=== PATIENT | male | born 1985 | race Hispanic/Latino ===

== ENCOUNTER 2017-06-30 22:42 | Emergency (ER) | payer MEDICAID, OTHER ==
[2017-06-30 22:46] VITALS: BMI 20.7
[2017-06-30] MEDS ORDERED: Sodium Chloride 0.9% 1,000 ML IV STA (23:20)
--- NOTE | 2017-06-30 23:22 | ED PDOC ---
Arrival/HPI - General Historian: Patient, EMS, Police EM Caveat: Intoxicated, Uncooperative <Lucien Zepeda - Last Filed: 07/01/17 06:13> <Aroldo Paige DO - Last Filed: 07/01/17 06:32> - General Chief Complaint: Substance Abuse Time Seen by Provider: 06/30/17 22:44 - History of Present Illness Narrative History of Present Illness (Text): 06/30/17 23:18 32M w/ pmhx significant for HepC, IVDA [place] [facility] [place] EMS and Police physically and verbally aggressive saying he did cocaine, heroine, PCP. Total amount unknown. Patient is uncooperative at this time. Patient had to be restrained for safety for himself and others. Unable to obtain a full HPI due to being non-compliant continued screaming obscenities. PMH: septic joint, HepC, IVDA PSH: joint aspiration ALL: NKDA SocialHx: IVDA (Lucien Zepeda) Past Medical History - Provider Review Nursing Documentation Reviewed: Yes - Travel History Have you recently traveled outside [place] w/in the past 3 mons?: No - Past History Past History: Non-Contributing - Infectious Disease Hx of Infectious Diseases: None - Tetanus Immunization Tetanus Immunization: Unknown - Past Medical History Past Medical History: No Previous - Pulmonary Other/Comment: Smoker - Hematological/Oncological Hx Blood Transfusions: No - Integumentary Other/Comment: multiple tatoos, track maurice both arms,dirty feet and toenails - Musculoskeletal/Rheumatological Hx Falls: No - Psychiatric Hx Substance Use: Yes (herion/cocaine on Monday) Other/Comment: IVDA- used heroin 01/03/16 - Past Surgical History Past Surgical History: No Previous - Surgical History Other/Comment: ct guided right groin aspiration and drainage of abcess 01/05/2016 - Anesthesia Hx Anesthesia: No <Lucien Zepeda - Last Filed: 07/01/17 06:13> Family/Social History Family/Social History: Other (non-contributory) Smoking Status: Heavy Smoker > 10 Cigarettes Daily Hx Alcohol Use: Yes (quit 3 1/2 yrs ago) Hx Substance Use: Yes (herion/cocaine on Monday) <Lucien Zepeda - Last Filed: 07/01/17 06:13> Allergies/Home Meds <Pradeep Zepedan - Last Filed: 07/01/17 06:13> <Aroldo Paige DO - Last Filed: 07/01/17 06:32> Allergies/Adverse Reactions: Allergies No Known Allergies Allergy (Verified 02/23/16 02:13) Home Medications: Home Meds Medication Instructions Recorded Confirmed No Known Home Med 02/23/16 07/01/17 Review of Systems - Review of Systems Systems not reviewed;Unavailable: Uncooperative <Lucien - Last Filed: 07/01/17 06:13> - Physician Review All systems were reviewed & negative as marked: Yes <Karineyazan Aroldo CHEN - Last Filed: 07/01/17 06:32> Physical Exam Vital Signs Reviewed: Yes Temperature: Afebrile Blood Pressure: Normal Pulse: Tachycardic Respiratory Rate: Normal Appearance: Positive for: Well-Appearing, Ill-Appearing, Unkept, Uncomfortable Pain Distress: None Mental Status: Positive for: Agitated - Systems Exam Head: Present: Atraumatic Pupils: Present: Other (Constricted) Conjunctiva: Present: Normal Mouth: Present: Drooling Pharnyx: No: ERYTHEMA, EXUDATE Neck: Present: Other (Midline abrasians) Respiratory/Chest: No: Respiratory Distress, Accessory Muscle Use Cardiovascular: Present: Normal S1, S2, Tachycardic Abdomen: No: Tenderness, Distention, Peritoneal Signs Back: Present: Normal Inspection. No: CVA Tenderness, Midline Tenderness Upper Extremity: Present: Other (multiple scars from IVD injection sites). No: Edema Neurological: No: GCS=15 Skin: Present: Rashes, Abrasion Psychiatric: Present: Alert <Pradeep Zepedan - Last Filed: 07/01/17 06:13> Vital Signs Pulse Resp BP Pulse Ox 07/01/17 06:15 71 19 117/67 98 07/01/17 01:23 87 18 137/85 100 06/30/17 23:12 130 H 20 108/53 L 97 06/30/17 23:07 225 H 24 119/68 97 Medical Decision Making - Lab Interpretations Interpretation: No clinic. 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 Patient was seen and evaluated with resident. Came up with plan and treatment together. 32 year old male presents by EMS and Police verbally aggressive saying he did cocaine, heroine, and PCP. Plan: -- EKG -- Labs -- Chest X-ray -- Adenosine Inj x2, Ativan, Haldol, IV Fluids -- Urinary Staight Cath -- Restraint/ Seclusion For Violent Behavior -- O2 Via Nasal Cannula -- Urinalysis w/ micro -- (Aroldo Paige DO) - Lab Interpretations Narrative Lab Interpretation (Text): 07/01/17 06:15 UDS + for PCP, opiates, cocaine WBC elevated 2/2 reactive process (Lucien Zepeda) Lab Results: 06/30/17 23:05 06/30/17 23:05 Lab Results 06/30/17 23:40: Urine Opiates Screen Positive H, Urine Methadone Screen Negative , Ur Barbiturates Screen Negative, Ur Phencyclidine Scrn Positive H, Ur Amphetamines Screen Negative, U Benzodiazepines Scrn Negative, U Oth Cocaine Metabols Positive H, U Cannabinoids Screen Positive H 06/30/17 23:40: Urine Color Yellow, Urine Appearance Sl cloudy, Urine pH 6.0, Ur Specific [place] >= 1.030, Urine Protein 100 H, Urine Glucose (UA) Negative, Urine Ketones Trace H, Urine Blood Negative, Urine Nitrate Negative, Urine Bilirubin Small H, Urine Urobilinogen 1.0 H, Ur Leukocyte Esterase Negative, Urine RBC 0 - 2, Urine WBC 0 - 2, Ur Epithelial Cells 0 - 2, Amorphous Sediment Few, Urine Bacteria Few 06/30/17 23:05: Alcohol, Quantitative < 10 06/30/17 23:05: Sodium 145, Potassium 4.1, Chloride 100, Carbon Dioxide 19 L, Anion Gap 30 H, BUN 8, Creatinine 1.0, Est GFR ( Amer) > 60, Est GFR (Non -Af Amer) > 60, Random Glucose 229 H, Calcium 10.8 H, Magnesium 2.1, Total Bilirubin 1.0, AST 58, ALT 42, Alkaline Phosphatase 90, Lactate Dehydrogenase 486, Total Creatine Kinase 71, Troponin I < 0.01, Total Protein 9.0 H, Albumin 4.1, Globulin 4.9, Albumin/Globulin Ratio 0.8 L 06/30/17 23:05: WBC 19.8 H D, RBC 4.82, Hgb 13.7 L, Hct 42.8, MCV 88.8, MCH 28.4 , MCHC 32.0, RDW 14.7 H, Plt Count 377, MPV 10.4, Gran % 73.4 H, Lymph % (Auto) 20.2 L, [place] % (Auto) 5.1, Eos % (Auto) 0.9 L, Baso % (Auto) 0.4, Gran # 14.55 H , Lymph # (Auto) 4.0 H, [place] # (Auto) 1.0 H, Eos # (Auto) 0.2, Baso # (Auto) 0.07 - RAD Interpretation Narrative RAD Interpretations (Text): 07/01/17 06:16 CXR No acute changes in lungs- WNL (Lucien Zepeda) Radiology Orders: 06/30/17 23:19 CHEST PORTABLE [RAD] Stat - EKG Interpretation EKG Interpretation (Text): 06/30/17 23:29 Tachy cardia questionable A-flutter (Lucien Zepeda) - Medication Orders Current Medication Orders: Discontinued Medications Adenosine (Adenosine 6 Mg/2 Ml Inj) 12 mg IVP STAT STA Stop: 07/01/17 00:17 Last Admin: 06/30/17 23:09 Dose: 12 mg IVP Administration Document 06/30/17 23:09 RD (Rec: 07/01/17 00:21 RD [id number]) Charges for Administration # of IVP Administrations 1 Adenosine (Adenosine 6 Mg/2 Ml Inj) 6 mg IVP STAT STA Stop: 07/01/17 00:18 Last Admin: 06/30/17 23:08 Dose: 6 mg IVP Administration Document 06/30/17 23:08 RD (Rec: 07/01/17 00:20 RD [id number]) Charges for Administration # of IVP Administrations 1 Haloperidol Lactate (Haldol) 5 mg IM STAT STA PRN Reason: Protocol Stop: 06/30/17 23:31 Last Admin: 06/30/17 22:50 Dose: 5 mg IM Administration Charges Document 06/30/17 22:50 RD (Rec: 07/01/17 00:14 RD [id number]) Injection Site MAR Injection Site Left Deltoid Charges for Administration # of IM Administrations 1 Sodium Chloride (Sodium Chloride 0.9%) 1,000 mls @ 999 mls/hr IV .Q1H1M STA Stop: 07/01/17 00:20 Last Admin: 06/30/17 23:05 Dose: 999 mls/hr eMAR Start Stop Document 06/30/17 23:05 RD (Rec: 07/01/17 00:13 RD [id number]) Intravenous Solution Start Date 06/30/17 Start Time 23:05 End Date 07/01/17 End time 00:05 Total Infusion Time 60 Sodium Chloride (Sodium Chloride 0.9%) 1,000 mls @ 999 mls/hr IV .Q1H1M STA Stop: 07/01/17 01:16 Last Admin: 07/01/17 00:10 Dose: 999 mls/hr eMAR Start Stop Document 07/01/17 00:10 RD (Rec: 07/01/17 00:22 RD [id number]) Intravenous Solution Start Date 07/01/17 Start Time 00:10 End Date 07/01/17 End time 01:10 Total Infusion Time 60 Lorazepam (Ativan) 2 mg IM ONCE ONE PRN Reason: Protocol Stop: 06/30/17 23:31 Last Admin: 06/30/17 22:51 Dose: 2 mg IM Administration Charges Document 06/30/17 22:51 RD (Rec: 07/01/17 00:14 RD [id number]) Injection Site MAR Injection Site Left Deltoid Charges for Administration # of IM Administrations 1 - PA / [employer] / Resident Statement / has reviewed & agrees with the documentation as recorded. / has examined the patient and agrees with the treatment plan. <Lucien Zepeda - Last Filed: 07/01/17 06:13> - PA / [employer] / Resident Statement SUMIT has reviewed & agrees with the documentation as recorded. / has examined the patient and agrees with the treatment plan. - Scribe Statement The provider has reviewed the documentation as recorded by the Scribe <Royal CHENAroldo - Last Filed: 07/01/17 06:32> - Scribe Statement Karen Oconnor Provider Scribe Attestation: All medical record entries made by the Scribe were at my direction and personally dictated by me. I have reviewed the chart and agree that the record accurately reflects my personal performance of the history, physical exam, medical decision making, and the department course for this patient. I have also personally directed, reviewed, and agree with the discharge instructions and disposition. (Aroldo Paige DO) Disposition/Present on Arrival - Present on Arrival Any Indicators Present on Arrival: No History of DVT/PE: No History of Uncontrolled Diabetes: No Urinary Catheter: No History of Decub. Ulcer: No History Surgical Site Infection Following: None - Disposition Have Diagnosis and Disposition been Completed?: Yes Patient Plan: Discharge <Lucien Zepeda - Last Filed: 07/01/17 06:13> - Disposition Disposition Time: 06:00 <Royal CHENAroldo - Last Filed: 07/01/17 06:32> - Disposition Diagnosis: Drug abuse, cocaine type, PCP (phencyclidine) abuse Disposition: HOME/ ROUTINE Condition: IMPROVED Discharge Instructions (ExitCare): Cocaine Use Disorder, Drug Abuse and Drug Addiction (DC), Drug Abuse Treatment Additional Instructions: Thank you for letting us take care of you today. The emergency medical care you received today was directed at your acute symptoms. If you were prescribed any medication, please fill it and take as directed. It may take several days for your symptoms to resolve. Return to the Emergency Department if your symptoms worsen, do not improve, or if you have any other problems. Please contact your doctor or call one of the physicians/clinics you have been referred to that are listed on the Patient Visit Information form that is included in your discharge packet. Bring any paperwork you were given at discharge with you along with any medications you are taking to your follow up visit. Our treatment cannot replace ongoing medical care by a primary care provider (PCP) outside of the emergency department. Thank you for allowing the [facility] team to be part of your care today. Follow up with your doctor in 2-3 days for re-evaluation and further management. Referrals: Authorization Nurse [facility] [Outside] - Follow up with primary [facility] [place]] - Follow up with primary Forms: [employer] (H[place]er)
[2017-06-30 23:48] LABS: BASO # 0.07 K/mm3 (0.0-2.0); BASO % 0.4 % (0.0-3.0); EOS # 0.2 (0.0-0.7); EOS % 0.9 % (1.5-5.0); GRAN # 14.55 (1.4-6.5); GRAN % 73.4 % (50.0-68.0); HEMOGLOBIN 13.7 g/dL (14.0-18.0); LYMPH % 20.2 % (22.0-35.0); MEAN CELL VOLUME 88.8 fl (80.0-105.0); MEAN CORPUSCULAR HEMOGLOBIN 28.4 pg (25.0-35.0); MEAN PLATELET VOLUME 10.4 fl (7.0-11.0); MONO % 5.1 % (1.0-6.0); RBC 4.82 10^6/uL (3.5-6.1); RED CELL DISTRIBUTION WIDTH 14.7 % (11.5-14.5); WHITE BLOOD COUNT 19.8 10^3/ul (4.5-11.0)
[2017-06-30 23:48] LABS: URINE BILIRUBIN SMALL (NEGATIVE); URINE BLOOD NEGATIVE (NEGATIVE); URINE GLUCOSE (UA) NEGATIVE (NEGATIVE); URINE LEUKOCYTE ESTERASE NEGATIVE Leu/uL (NEGATIVE); URINE PROTEIN 100 mg/dL (<30 mg/dL)
[2017-06-30 23:53] LABS: URINE APPEARANCE SL CLOUDY (CLEAR); URINE COLOR YELLOW (YELLOW)
[2017-06-30 23:56] LABS: ALB/GLOB RATIO 0.8 (1.1-1.8); ALBUMIN 4.1 g/dL (3.0-4.8); ALT/SGPT 42 U/L (7-56); AST/SGOT 58 U/L (17-59); BLOOD UREA NITROGEN 8 mg/dL (7-21); CALCIUM 10.8 mg/dL (8.4-10.5); GFR AFRICAN-AMERICAN > 60; GFR NON-AFRICAN AMERICAN > 60
[2017-07-01 00:08] LABS: BARBITURATES, UR NEGATIVE (NEGATIVE); BENZODIAZEPINES, UR NEGATIVE (NEGATIVE); OPIATES, UR POSITIVE (NEGATIVE); PHENCYCLIDINE, UR POSITIVE (NEGATIVE)
[2017-07-01 00:11] LABS: URINE AMORPHOUS SEDIMENT FEW; URINE BACTERIA FEW (NEG); URINE EPITHELIAL CELLS 0 - 2 /hpf (0-5); URINE RBC 0 - 2 /hpf (0-2); URINE WBC 0 - 2 /hpf (0-6)
[2017-07-01 00:13] LABS: TROPONIN I < 0.01 ng/mL
[2017-07-01] MEDS ORDERED: Sodium Chloride 0.9% 1,000 ML IV STA (00:16)
[2017-07-01 06:30] VITALS: BP 117/67; PULSE 71; RESP 19; O2SAT 98
--- NOTE | 2017-07-01 09:54 | RAD ---
HISTORY: r/o infiltrate COMPARISON: 03/01/2016 FINDINGS: LUNGS: No active pulmonary disease. PLEURA: No significant pleural effusion identified, no pneumothorax apparent. CARDIOVASCULAR: Normal. OSSEOUS STRUCTURES: No significant abnormalities. VISUALIZED UPPER ABDOMEN: Normal. OTHER FINDINGS: None. IMPRESSION: No active disease. No significant interval change compared to the prior examination(s).
== END 2017-07-01 06:20 | disposition home or self-care (01) ==
LOC: ED 22:42
DX: F14.10 Cocaine abuse, uncomplicated (principal); F16.10 Hallucinogen abuse, uncomplicated
CPT/HCPCS: 71045; 80053; 80320; 80324; 80345; 80346; 80349; 80353; 80358; 80361; 81001; 82550; 83615; 83735; 83992; 84484; 85025; 96361; 96372; 96374; 99285; J0153; J1630; J2060; J7040

== ENCOUNTER 2017-07-02 12:52 | Emergency (ER) | payer MEDICAID ==
[2017-07-02 12:52] VITALS: BMI 20.7
[2017-07-02 13:10] VITALS: RESP 20
[2017-07-02] MEDS ORDERED: DiphenhydrAMINE 50 mg/ml Inj IM ONE (13:17)
--- NOTE | 2017-07-02 13:22 | ED PDOC ---
Arrival/HPI - General Chief Complaint: Substance Abuse Time Seen by Provider: 07/02/17 13:12 Historian: Patient - History of Present Illness Narrative History of Present Illness (Text): 07/02/17 13:19 32 year old male presents to the Emergency department complaining of muscle spasms in jaw since last night after using heroin. Patient was seen in the Emergency department on 06/30/17 for drug abuse, was given medicine, and was discharged home. Patient keeps repeating he feels like he will "bite his tongue off." Patient denies any fever, chills, chest pain, shortness of breath, nausea , vomiting, diarrhea, urinary symptoms, back pain, neck pain, headache, dizziness, or any other complaints. Time/Duration: Other (last night) Symptom Onset: Sudden Symptom Course: Unchanged Activities at Onset: Rest Context: Home Associated Symptoms (Text): 07/02/17 13:47 Seen in the emergency department yesterday for substance abuse. Patient was agitated requiring chemical and physical restraints for his protection. He last used heroin yesterday. He reports HIV negative several months ago. Overnight he developed jaw spasms. He states he is afraid he is going to bite his tongue off. Patient is having a dystonic reaction to Haldol. Past Medical History - Provider Review Nursing Documentation Reviewed: Yes - Past History Past History: Non-Contributing - Infectious Disease Hx of Infectious Diseases: None - Tetanus Immunization Tetanus Immunization: Unknown - Past Medical History Past Medical History: No Previous - Pulmonary Other/Comment: Smoker - Hematological/Oncological Hx Blood Transfusions: No - Integumentary Other/Comment: multiple tatoos, track maruice both arms,dirty feet and toenails - Musculoskeletal/Rheumatological Hx Musculoskeletal Disorders: No - Psychiatric Hx Substance Use: Yes (herion/cocaine on Monday) Other/Comment: IVDA- used heroin 01/03/16 - Past Surgical History Past Surgical History: No Previous - Surgical History Other/Comment: ct guided right groin aspiration and drainage of abcess 01/05/2016 - Anesthesia Hx Anesthesia: No Family/Social History - Physician Review Nursing Documentation Reviewed: Yes Family/Social History: Unknown Family HX Smoking Status: Heavy Smoker > 10 Cigarettes Daily Hx Alcohol Use: Yes (quit 3 1/2 yrs ago) Hx Substance Use: Yes (herion/cocaine on Monday) Allergies/Home Meds Allergies/Adverse Reactions: Allergies No Known Allergies Allergy (Verified 07/02/17 13:10) Home Medications: Home Meds Medication Instructions Recorded Confirmed No Known Home Med 02/23/16 07/02/17 Review of Systems - Physician Review All systems were reviewed & negative as marked: Yes - Review of Systems Constitutional: absent: Fevers, Night Sweats ENT: Other (jaw spasms) Respiratory: absent: SOB Cardiovascular: absent: Chest Pain Gastrointestinal: absent: Abdominal Pain, Diarrhea, Nausea, Vomiting Genitourinary Male: absent: Dysuria Musculoskeletal: absent: Back Pain, Neck Pain Neurological: absent: Headache, Dizziness Physical Exam Vital Signs Temp Pulse Resp BP Pulse Ox 07/02/17 14:30 98.4 F 89 20 165/94 H 97 07/02/17 13:07 99.8 F H 120 H 20 152/102 H 95 07/02/17 12:52 99.8 F H 120 H 20 152/102 H 95 Temperature: Afebrile Blood Pressure: Hypertensive Pulse: Tachycardic Respiratory Rate: Normal Appearance: Positive for: Non-Toxic, Comfortable, Other (Chronically ill- appearing) Pain Distress: None Mental Status: Positive for: Alert and Oriented X 3 - Systems Exam Head: Present: Atraumatic, Normocephalic Pupils: Present: PERRL Extroacular Muscles: Present: EOMI Conjunctiva: Present: Normal Mouth: Present: Moist Mucous Membranes, Other (muscle spasm in jaw) Pharnyx: No: ERYTHEMA, EXUDATE, TONSILS ENLARGED Neck: Present: Normal Range of Motion Respiratory/Chest: Present: Clear to Auscultation, Good Air Exchange. No: Respiratory Distress, Accessory Muscle Use Cardiovascular: Present: Regular Rate and Rhythm, Normal S1, S2. No: Murmurs Abdomen: Present: Normal Bowel Sounds. No: Tenderness, Distention, Peritoneal Signs Back: Present: Normal Inspection Upper Extremity: Present: Normal Inspection. No: Cyanosis, Edema Lower Extremity: Present: Normal Inspection. No: Edema Neurological: Present: GCS=15, CN II-XII Intact, Speech Normal, Motor Func Grossly Intact Skin: Present: Warm, Dry, Normal Color. No: Rashes Psychiatric: Present: Alert, Oriented x 3, Normal Insight, Normal Concentration Medical Decision Making ED Course and Treatment: 07/02/17 13:24 Impression: 32 year old male presents to the Emergency department complaining of muscle spasms in jaw after using heroin last night. Plan: -- Benadryl -- Reassess and disposition Prior Visits: Notes and results from previous visits were reviewed. Patient was last seen in the emergency department on 06/30/17, diagnosed with Drug abuse, cocaine type, PCP (phencyclidine) abuse, and was discharged home. Progress Notes: 07/02/17 14:42 Symptoms improved post Benadryl. Patient is not interested in rehabilitation. - Medication Orders Current Medication Orders: Discontinued Medications Diphenhydramine HCl (Benadryl) 50 mg IM ONCE ONE Stop: 07/02/17 13:18 Last Admin: 07/02/17 13:34 Dose: 50 mg IM Administration Charges Document 07/02/17 13:34 SRE (Rec: 07/02/17 13:34 SRE [id number]) Injection Site MAR Injection Site Left Gluteus Wilfred Charges for Administration # of IM Administrations 1 - Scribe Statement The provider has reviewed the documentation as recorded by the Scriboly Yang All medical record entries made by the Scribe were at my direction and personally dictated by me. I have reviewed the chart and agree that the record accurately reflects my personal performance of the history, physical exam, medical decision making, and the department course for this patient. I have also personally directed, reviewed, and agree with the discharge instructions and disposition. Disposition/Present on Arrival - Present on Arrival Any Indicators Present on Arrival: No History of DVT/PE: No History of Uncontrolled Diabetes: No Urinary Catheter: No History of Decub. Ulcer: No History Surgical Site Infection Following: None - Disposition Have Diagnosis and Disposition been Completed?: Yes Diagnosis: Acute dystonic reaction due to drugs Disposition: HOME/ ROUTINE Disposition Time: 14:43 Patient Plan: Discharge Condition: IMPROVED Discharge Instructions (ExitCare): Tardive Dyskinesia Additional Instructions: Benadryl [id number] as directed on bottle as needed. Referrals: PCP,NO [Primary Care Provider] - Follow up with primary Forms: [email or web address] ([place]rian)
[2017-07-02 14:31] VITALS: BP 165/94; PULSE 89; TEMP 98.4; O2SAT 97
== END 2017-07-02 15:00 | disposition home or self-care (01) ==
LOC: ED 12:52
DX: G24.02 Drug induced acute dystonia (principal)
CPT/HCPCS: 96372; 99284; J1200